=== PATIENT | female | born 1960 | race Caucasian/White ===

== ENCOUNTER 2024-01-12 08:43 | Outpatient (AMB) | payer OTHER, SELFPAY ==
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
[2024-01-12 08:59] VITALS: BP 189/83; PULSE 75; O2SAT 97; BMI 36.1
== END 2024-01-12 10:00 | disposition home or self-care (01) ==
PROVIDERS: PCP Physical Medicine & Rehabilitation; Visit Provider Registered Nurse Emergency
DX: G90.50 Complex regional pain syndrome I, unspecified (principal); M79.602 Pain in left arm
CPT/HCPCS: 99204

== ENCOUNTER 2024-03-01 06:00 | Day surgery (SDC) | payer OTHER, SELFPAY ==
[2024-02-28 13:25] VITALS: BMI 36.1
[2024-03-01] VITALS (7 sets, daily range): BP systolic 143–153; BP diastolic 65–79; PULSE 67–96; RESP 16–18; TEMP 36.1–36.7; O2SAT 95–97; BMI 35.5
[2024-03-01] MEDS: Lactated Ringers 1,000 ML 100 ML IVCONT (06:42)
--- NOTE | 2024-03-01 07:27 | MHC.SHP ---
Pre-Procedural Eval Section A - 24 Hr Update-Section A only Date of Service: 03/01/24 The patient is an INPATIENT: No Changes since office visit: Yes Patient answered all questions The patient has been examined within 24 hours of the surgical procedure. The History & Physical has been completed within 30 days and I have reviewed it.: No Section B - Complete if H&P > 30 days Chief Complaint: Complex regional pain syndrome I, unspecified Details of Present Illness: as above Relevant Family History (Specify if Yes): No Relevant Social History: None Present Medications: see Short Stay Collaborative assessment Medical History: No relevant PMH History of Previous Operations: No relevant previous surgery Allergies: Allergies Allergy/AdvReac Type Severity Reaction Status Date / Time adhesive tape Allergy Intermediate Rash Verified 03/01/24 06:53 Latex, Natural Rubber Allergy Intermediate Rash Verified 03/01/24 06:53 nylon Allergy Mild Itching Verified 03/01/24 06:53 Review of Systems Sugical H&P ROS: Negative: Neurological, Psychiatric, Hem-Onc, Allergic/Immunologic, Genitourinary, Integumentary, Endocrine and Eyes/Ears/Nose/Throat and Yes, Specify: Constitution (Obesity), Cardiovascular (HTN), Respiratory (asthma), Gastrointestinal (GERD) and Musculoskeletal (CRPS I LUE) Exam Surgical H&P Exam: Normal: HEENT, Normal: Heart, Normal: Lungs, Normal: Extremities, Normal: Skin and Normal: Neurological and Significant Findings: Abdomen (enlarged 2 to i/a & s/q fat) Plan Diagnosis/Plan: Unchanged I have reviewed the history and physical and performed a pertinent physical examination on my patient. No changes have occurred unless specified. Time Spent With Patient Time: Total time managing care of this patient today ____ minutes.
--- NOTE | 2024-03-01 07:30 | P.CONAN_ITS ---
Documented by User: Irma Ma NP 02/28/24 14:00 HPI - Anesthesia Eval Consult details Narrative: 63yo F for Spinal Cord Stimulation Trial PMF Active Problems Active Problems: All Active Problems Left arm pain (Acute) CRPS (complex regional pain syndrome type I) (Acute) Past Medical History Medical History Pelvic prolapse Gallstones Arthritis Anxiety Fatigue Hypertension Chronic headaches Thyroid disorder Asthma Fibromyalgia Surgical History Surgical History (Updated 03/01/24 @ 06:52 by Luisana Mulligan, RN) Hx of hysterectomy Hx of pelvic surgery Hx of colonoscopy S/P cholecystectomy Social History Social History Are you a primary senior care manager to a significant other at home: No Do you presently have visiting nurse or other home services: No Patient Tobacco Use Status: Former Tobacco user Have you been hit, kicked, punched, or otherwise hurt by someone within the past year? If so, by whom?: No Are you DNR?: No Advance Directives: No Advance Directives Information Provided: Yes Recently lost weight without trying: No Nutrition Risks: No Nutritional Risk Meds Allergies Allergy/AdvReac Type Severity Reaction Status Date / Time adhesive tape Allergy Intermediate Rash Verified 03/01/24 06:53 Latex, Natural Rubber Allergy Intermediate Rash Verified 03/01/24 06:53 nylon Allergy Mild Itching Verified 03/01/24 06:53 Home Medications ?Medication ?Instructions ?Recorded ?Confirmed ?Last Taken ?Type acetaminophen 650 mg 650 mg PO Q12H 01/12/24 02/28/24 Unknown History tablet,extended release albuterol sulfate 90 mcg/actuation 2 puff inhalation Q6H PRN 01/12/24 02/28/24 Unknown History aerosol inhaler Shortness Of Breath Or Wheezing azelastine 137 mcg (0.1 %) nasal 2 spray intranasal BID 01/12/24 02/28/24 Unknown History spray cyclobenzaprine 10 mg tablet 10 mg PO BEDTIME 01/12/24 02/28/24 Unknown History duloxetine 40 mg capsule,delayed 40 mg PO DAILY 01/12/24 02/28/24 Unknown History release esomeprazole magnesium 20 mg 20 mg PO DAILY 01/12/24 02/28/24 Unknown History capsule,delayed release (Nexium) estradiol 10 mcg vaginal insert 10 mcg vaginal 2XW 01/12/24 02/28/24 Unknown History levocetirizine 5 mg tablet (Xyzal) 5 mg PO QPM PRN Allergy Symptoms 01/12/24 02/28/24 Unknown History levothyroxine 137 mcg capsule 137 mcg PO DAILY 01/12/24 02/28/24 03/01/24 History lisinopril 20 mg tablet 20 mg PO DAILY 01/12/24 02/28/24 Unknown History ropinirole 2 mg tablet 2 mg PO BEDTIME 01/12/24 02/28/24 Unknown History tramadol 50 mg tablet 50 mg PO BID PRN Pain 01/12/24 02/28/24 Unknown History Exam Height,Weight and Vital Signs: Height 5 ft 7 in Weight 104.44 kg Pertinent Lab Results Pertinent Lab Results: CBC and BMP 07/2023 from [facility] Narrative Narrative: EKG 07/2023 [id number] Ventricular Rate: 67 BPM Atrial Rate: 67 BPM P-R Interval: 182 ms QRS Duration: 98 ms Q-T Interval: 412 ms QTC Calculation(Bazett): 435 ms P De Ruyter: 50 degrees R De Ruyter: -12 degrees T De Ruyter: 43 degrees Normal sinus rhythm with sinus arrhythmia Moderate voltage criteria for LVH, may be normal variant ( R in aVL , [place] product ) Borderline ECG When compared with ECG of 24-FEB-2022 10:50, No significant change was found Confirmed by YARITZA CONNER MD ([id number]) on 08/16/2023 9:13:32 AM Assessment and Plan Assessment Anesthesia Assessment: Chart Reviewed Documented by User: Maira Angelo DO 03/01/24 07:47 [facility] Past Medical History Medical History Pelvic prolapse Gallstones Arthritis Anxiety Fatigue Hypertension Chronic headaches Thyroid disorder Asthma Fibromyalgia Family History Family history of problems with anesthesia: No Surgical History Surgical History (Updated 03/01/24 @ 06:52 by Luisana Mulligan RN) Hx of hysterectomy Hx of pelvic surgery Hx of colonoscopy S/P cholecystectomy History of Problems with Anesthesia: Yes (PONV) Social History Social History Are you a primary senior care manager to a significant other at home: No Do you presently have visiting nurse or other home services: No Patient Tobacco Use Status: Former Tobacco user Have you been hit, kicked, punched, or otherwise hurt by someone within the past year? If so, by whom?: No Are you DNR?: No Advance Directives: No Advance Directives Information Provided: Yes Recently lost weight without trying: No Nutrition Risks: No Nutritional Risk Meds Allergies Allergy/AdvReac Type Severity Reaction Status Date / Time adhesive tape Allergy Intermediate Rash Verified 03/01/24 06:53 Latex, Natural Rubber Allergy Intermediate Rash Verified 03/01/24 06:53 nylon Allergy Mild Itching Verified 03/01/24 06:53 Home Medications ?Medication ?Instructions ?Recorded ?Confirmed ?Last Taken ?Type acetaminophen 650 mg 650 mg PO Q12H 01/12/24 02/28/24 Unknown History tablet,extended release albuterol sulfate 90 mcg/actuation 2 puff inhalation Q6H PRN 01/12/24 02/28/24 Unknown History aerosol inhaler Shortness Of Breath Or Wheezing azelastine 137 mcg (0.1 %) nasal 2 spray intranasal BID 01/12/24 02/28/24 Unknown History spray cyclobenzaprine 10 mg tablet 10 mg PO BEDTIME 01/12/24 02/28/24 Unknown History duloxetine 40 mg capsule,delayed 40 mg PO DAILY 01/12/24 02/28/24 Unknown History release esomeprazole magnesium 20 mg 20 mg PO DAILY 01/12/24 02/28/24 Unknown History capsule,delayed release (Nexium) estradiol 10 mcg vaginal insert 10 mcg vaginal 2XW 01/12/24 02/28/24 Unknown History levocetirizine 5 mg tablet (Xyzal) 5 mg PO QPM PRN Allergy Symptoms 01/12/24 02/28/24 Unknown History levothyroxine 137 mcg capsule 137 mcg PO DAILY 01/12/24 02/28/24 03/01/24 History lisinopril 20 mg tablet 20 mg PO DAILY 01/12/24 02/28/24 Unknown History ropinirole 2 mg tablet 2 mg PO BEDTIME 01/12/24 02/28/24 Unknown History tramadol 50 mg tablet 50 mg PO BID PRN Pain 01/12/24 02/28/24 Unknown History Exam Exam Date and Time: 03/01/24 0730 Height,Weight and Vital Signs: Height 5 ft 7 in Weight 104.44 kg Vital Signs Temperature 98.1 F 03/01/24 06:50 Pulse Rate 96 03/01/24 06:50 Respiratory Rate 18 03/01/24 06:50 Blood Pressure 145/79 H 03/01/24 06:50 Pulse Oximetry 95 03/01/24 06:50 Oxygen Delivery Method Room Air 03/01/24 06:50 Temperature 98.1 F 03/01/24 06:50 Pulse Rate 96 03/01/24 06:50 Respiratory Rate 18 03/01/24 06:50 Blood Pressure 145/79 H 03/01/24 06:50 Pulse Oximetry 95 03/01/24 06:50 Oxygen Delivery Method Room Air 03/01/24 06:50 Airway Mallampati Class: II TM Dist: >3cm Neck ROM: Full Loose/Missing/Broken Teeth: Yes (multiple missing teeth; permanent bridge) Heart: S1S2 Lungs: CTAB Assessment and Plan Assessment Anesthesia Assessment: Anesthesia Plan Discussed and Chart Reviewed Final Anesthetic Review Family History of Problems with Anesthesia: No History of Problems with Anesthesia: Yes (PONV) NPO: Yes ASA Class: II Final Preanesthetic Review: No Changes in Pt Med Stat, Meds/Allgs Chart Reviewed, Consent Obtained/Reviewed and Anes Risks/Benef Reviewed Patient Risk: Low Procedure Risk: Low Anesthetic Plan Anesthetic Plan: MAC: and Agree w/ Assess. and Plan Disposition: Standard PACU
--- NOTE | 2024-03-01 07:31 | P.OP_ITS ---
Operative Note Operative Note Date of Service: 03/01/24 Narrative: Trial of [employer] spinal cord stimulator cervical position. Jessica is very pleasant 63 years old lady who came today- to the operating room for trial of spinal cord stimulator [employer] for the treatment of CRPS type one on the left upper extremity. ?Preoperatively patient received ? cefazolin 2 g approximately 20 minutes before the incision. After obtaining informed consent where risks and benefits as well as alternatives were explained to the patient including risk of bleeding, infection, peripheral nerve damage, spinal cord damage and headache, the patient was taken to the operating room. She was positioned prone on operating table, ASA monitor were applied and the patient was minimally sedated. ?Time-out was performed delineating correct site, side, the nature of the procedure, patient's allergy, preoperative antibiotic if needed.? All operating room staff was participating in OR time-out procedure. Patient's entire back was prepped with Chloraprep twice and draped with full body fenestrated laparoscopy drape.? Sterilely draped C-arm was brought over operating field and square picture of the T8,T9, T10 vertebrae? were demonstrated on the screen.?The position of the C-arm during the case was adjusted appropriately to receive images as close to sq as possible. ?Attention FIRST? was concentrated on the T7-T8 epidural interspace. The l ocation of the projection of T10 vertebra right pedicle was found on the skin using C-arm.? This location was injected with mixture of lidocaine 2% and ropivacaine 0.5% - 5 cc. and subcutaneous tissues were also anesthetized with the same solution.? After that 11 blade was used to make a small herve on the skin.? 10 cm 14 gauge? introducer epidural needle was inserted through the herve and advanced to right T8-T9 epidural interspace. The advancement of the needle was performed on anterior posterior and lateral views. Loss of resistance to air technique were used to locate epidural space. Guitar wire was used to confirm position of the needle in the epidural space, and after that epidural stimulating lead was attempted to insert and advance to the posterior epidural space. However epidural adhesions at this area did not allow me to advance the stimulating catheter as desired. I was not able to advance epidural catheter anywhere shorter than 2.5 cm from the tip needle. The decision was made to change the positioned of the electrode insertion for T11-T12 interspace. ? .? Location of the projection of the right pedicle pedicle center of the L1 vertebra was found on the skin using C-arm.? This location was injected with mixture of lidocaine 2% and Marcaine 0.5% 5 cc.? After that 11 blade was used to make a herve on the skin.? 10 cm 14 gauge introducer epidural needle was inserted through the herve and advanced to T11-T12 epidural interspace.? The advancement of the needle was performed on anterior posterior and lateral views.? Guitar wire and loss of resistance to air technique were used to locate epidural space.? When guitar wire was spread in the epidural fashion, epidural lead was inserted through the needle. After the the epidural lead advanced into the posterior epidural space and advanced to the T7-T8 epidural interspace were resistance again was met. Blue sheath introducer was obtained the needle was withdrawn and blue sheath introducer was inserted over the body of the epidural lead in the epidural space. Advancement of the epidural lead went little bit easier at this point and I was able to reach posterior epidural space at C6 C7 interval. Attempts to advance electrodes higher were not successful patient complained on severe pressure in her neck and thoracic spine were epidural lead was flexing laterally into the gutter and touching the peripheral nerves. The decision was made to perform the trial at this position. With appropriately positioned epidural lead in posterior epidural space slightly left to the midline patient reported stimulation from the mid arm to her fingers on the left. Due to difficulties of the case we decided to do 1 epidural lead trial. the position of electrodes in the posterior epidural space was verified by Fluoroscopy image. After that the skin at the site of the mixture of lidocaine 2% and ropivacaine 0.5% one-to-one was injected, the blue sheath introducer was withdrawn, the stylette wire was removed from the epidural lead..? The anchoring devices were dislodged on the leads and advanced to the level of the skin.? The anchoring devices were sutured with two 0-0 ?Silk sutures per each anchor to the skin of the patient. The central fixation screw of each anchor was rotated until three clicks were heard. The midthoracic skin herve was also sutured with 1 silk suture. The leads were connected to testing device.? Bacitracin ointment was applied to the entrance point of bilateral wires.? Sterile dressing was applied to the patient's back.? The testing device was also taped to the patient's back.? the patient tolerated procedure well she was taken outside of the operating room to recovery room.
--- NOTE | 2024-03-01 09:42 | PM.OP ---
Brief Operative Note Date of Service: 03/01/24 Pre-op diagnosis: Complex regional pain syndrome left upper extremity type 1 Post-op diagnosis: same Procedure: Trial of [employer] spinal cord stimulation system Implants: None permanent Surgeon: Oniel Briceno MD Anesthesia: MAC Was an Operations Administrative Assistant used for this Procedure?: No Estimated blood loss (mL): 2 Condition: stable Disposition: PACU
== END 2024-03-01 11:55 | disposition home or self-care (01) ==
PROVIDERS: PCP Family Medicine; Visit Provider Anesthesiology
PROC: (CPT 63650; principal; 2024-03-01 07:30)
DX: G90.512 Complex regional pain syndrome I of left upper limb (principal); M79.602 Pain in left arm; G96.12 Meningeal adhesions (cerebral) (spinal); M79.7 Fibromyalgia; M19.90 Unspecified osteoarthritis, unspecified site; I10 Essential (primary) hypertension; J45.909 Unspecified asthma, uncomplicated; E07.9 Disorder of thyroid, unspecified; R51.9 Headache, unspecified; Z87.828 Personal history of other (healed) physical injury and trauma; Z79.899 Other long term (current) drug therapy; Z91.040 Latex allergy status; L23.1 Allergic contact dermatitis due to adhesives; Z90.49 Acquired absence of other specified parts of digestive tract
CPT/HCPCS: 63650 ×2; C1889; C1897; J0690; J2003; J2250; J2405; J2704; J2795; J3010

== ENCOUNTER → 2024-03-01 06:00 | Outpatient (BNV) | payer OTHER, SELFPAY | PROVIDERS: PCP Family Medicine; Visit Provider Anesthesiology | DX: G90.512 Complex regional pain syndrome I of left upper limb (principal) | CPT/HCPCS: 63650 ==

== ENCOUNTER → 2024-03-05 10:22 | Outpatient (BNVA) | payer OTHER, SELFPAY | PROVIDERS: PCP Family Medicine | DX: Z48.00 Encounter for change or removal of nonsurgical wound dressing (principal) ==

== ENCOUNTER 2024-03-06 08:36 | Outpatient (AMB) | payer OTHER, SELFPAY ==
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
[2024-03-06 08:38] VITALS: BP 169/81; PULSE 86; RESP 16; BMI 36.0
== END 2024-03-06 09:17 | disposition home or self-care (01) ==
PROVIDERS: PCP Family Medicine; Visit Provider Anesthesiology
DX: G90.50 Complex regional pain syndrome I, unspecified (principal); M79.602 Pain in left arm
CPT/HCPCS: 99214

== ENCOUNTER → 2024-03-06 08:36 | Outpatient (BNVA) | payer OTHER, SELFPAY | PROVIDERS: PCP Family Medicine; Visit Provider Anesthesiology ==

== ENCOUNTER 2024-03-11 10:12 | Outpatient (AMB) | payer OTHER, SELFPAY ==
--- NOTE | 2024-03-11 10:33 | HO.SPINEOV ---
Vital Signs 03/11/24 10:36 Height 5 ft 7 in Weight 225 lb BMI 35.2 Intake Visit Reasons: urgent referral from Intake Note: Ms. Yung is here today c/o Severe Low back pain. Stitching Machine Operator Required: No Allergies adhesive tape Allergy (Intermediate, Verified 03/06/24 08:41) Rash Latex, Natural Rubber Allergy (Intermediate, Verified 03/06/24 08:41) Rash nylon Allergy (Mild, Verified 03/06/24 08:41) Itching Physical Exam Vital Signs: BMI result Body Mass Index 35.2 Assessment & Plan Assessment & Plan (1) CRPS (complex regional pain syndrome type I): Code(s): G90.50 - Complex regional pain syndrome I, unspecified Category: Medical Plan Dear Dr. Briceno, Thank you for referring Jessica to us today. Jessica is a pleasant 63 year old female who comes in today as a referral from pain management to evaluate her for cervical laminotomy to assist with spinal cord stimulator placement. To recap the patient previously underwent spinal cord stimulator trial with our colleagues in pain management on 03/01/2024. Unfortunately they were not able to advance the trial lead much past the C6 area. The patient reports that she has complex regional pain syndrome in her left upper extremity, and is attempting to have the spinal cord stimulator placed in an effort to mitigate this pain. She reportedly has had a favorable response to the trial, and Dr. Osman hopes that by advancing the lead farther cranially she will be able to obtain resolution of her pain. Notably she has had a slightly complicated postoperative course and had some difficulties with postoperative healing since her trial placement, warranting a course of postoperative antibiotics. PMH: Hypothyroidism, hypertension, GERD, restless legs syndrome, fibromyalgia, 4 different pelvic floor surgeries from [id number]. Asthma, seasonal allergies, depression. Social hx: Patient does not smoke, reports no substance use. Medications: Tramadol, ropinirole, Lyrica, lisinopril, levothyroxine, levocetirizine, Diflucan, estradiol, esomeprazole, duloxetine, cyclobenzaprine, Keflex, azelastine, albuterol, acetaminophen. Allergies: NKDA. Physical exam: The patient has 5/5 strength in her upper and lower extremities. She has hyperesthesia to her left upper extremity. The rest of her sensation is intact and normal. She ambulates well without an antalgic gait. Her reflexes are hypoactive bilaterally in the patella. The rest of her reflexes are 2+ intact. (-) Harris's, (-) clonus, (-) Lhermitte's, (-) bilateral straight leg raise. Posterior incision site appears clean, dry and healing with no signs of obvious edema, fluctuance or drainage. Imaging review: The patient reports that she did not bring her MRI of the cervical spine with her to this visit, however she has a disc and states that she can drop it off. Impression: Milton valdez is a pleasant 63-year-old female who comes in today for surgical evaluation for C5 laminotomy / decompression in order to assist with placement of spinal cord stimulator by our colleagues in pain management. 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 She is still currently taking Kephlex. For these reasons, and for a specific surgical plan I believe a subsequent follow up with Dr. Hays is best. That will also allow both surgeons to coordinate a date that works for them both to perform this surgery together. Thank you for allowing us to care for your patient. The total time spent with this visit with this patient was 30 minutes reviewing history, physical exam, MRI imaging review, and implementation of treatment plan or further diagnostic testing Keven Hays MD,PhD [facility] Coding Level of Care Code New Pt Level 3 (84935) Diagnoses CRPS (complex regional pain syndrome type I) G90.50
[2024-03-11 10:36] VITALS: BMI 35.2
== END 2024-03-11 10:54 | disposition home or self-care (01) ==
PROVIDERS: PCP Family Medicine; Referring Provider Anesthesiology; Visit Provider Physician Assistant
DX: G90.50 Complex regional pain syndrome I, unspecified (principal)
CPT/HCPCS: 99203

== ENCOUNTER → 2024-03-11 10:12 | Outpatient (BNVA) | payer OTHER, SELFPAY | PROVIDERS: PCP Family Medicine; Referring Provider Anesthesiology; Visit Provider Physician Assistant ==

== ENCOUNTER 2024-03-18 09:08 | Outpatient (AMB) | payer OTHER, SELFPAY ==
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
[2024-03-18 09:12] VITALS: BP 166/77; PULSE 82; RESP 16; O2SAT 95; BMI 35.7
--- OUTSIDE RECORDS SUMMARY | 2024-03-18 13:27 | XMS_ITS | Encounter Summary ---
Author Organization [employer] Address [address] [place] [address] Care Team Providers Care Tool Chaser Name Role Phone Burt Hines Unassigned Primary Care Provider U navailable Encounter Details Date Type Department Care Team (Latest Contact Info) Description 03/23/2018 [facility] CONVERSIONS Dental, Provider, DDS Social History Tobacco Use Types Packs/Day Years Used Date Smoking Tobacco: Never Assessed Comments Unknown Sex and Gender Information Value Date Recorded Sex Assigned at Female 06/09/2022 11:56 AM EDT Legal Sex Female 5:35 PM EDT Gender Identity Female 06/09/2022 11:56 AM EDT Sexual Orientation Choose not to disclose 2022 11:56 AM EDT documented as of this encounter Plan of Treatment Not on file documented as of this encounter Visit Diagnoses Not on filedocumented in this encounter Care Teams Tool Chaser Relationship Specialty Start Date End Date Burt Hinesssamadeo PCP - General Family Medicine 06/20/22 documented as of this encounter
--- OUTSIDE RECORDS SUMMARY | 2024-03-18 13:27 | XMS_ITS | Encounter Summary ---
Author Organization [employer] Address [address] [facility] [address] [place] [address] Care Team Providers Care Imager Name Role Phone Burt Hines Unassigned Primary Care Provider U navailable Encounter Details Date Type Department Care Team (Latest Contact Info) Description 12/04/2020 [facility] CONVERSIONS Dental, Provider, DDS Social [...] on filedocumented in this encounter Care Teams Imager Relationship Specialty Start Date End Date Burt Hines Unassigned PCP - General Family Medicine 06/20/22 documented as of this encounter
--- OUTSIDE RECORDS SUMMARY | 2024-03-18 13:27 | XMS_ITS | Encounter Summary ---
Author Organization [employer] [facility] Address [address] [place] [address] Care Team Providers Care Ship Pilot Dispatcher Name Role Phone Burt Hines Unassigned Primary Care Provider U navailable Encounter Details Date Type Department Care Team (Latest Contact Info) Description 12/15/2021 [facility] CONVERSIONS Dental, Provider, DDS Social [...] on filedocumented in this encounter Care Teams Ship Pilot Dispatcher Relationship Specialty Start Date End Date Burt Hines Unassigned PCP - General Family Medicine 06/20/22 documented as of this encounter
--- OUTSIDE RECORDS SUMMARY | 2024-03-18 13:27 | XMS_ITS | Clinical Summary ---
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 Primary Care Provider Unavailabl e Social History Tobacco Use Types Packs/Day Years Used Date Smoking Tobacco: Never Assessed Comments Unknown Sex and Gender Information Value Date Recorded Sex Assigned at Not on file Legal Sex Female 8:48 PM EST Gender Identity Not on file Sexual Orientation Not on file Plan of Treatment Health Maintenance Due Date Last Done Comments Colorectal Cancer: COLONOSCO PY Screening every 10 yrs (or Modifier) 1961 Depression: Screening Annual ly using PHQ-2/9 in Adults 18 yrs or above (or HM Modifier)([facility]) 1979 Hepatitis C Virus Infection in Adolescents and Adults: Screening (or Modifier) ([facility]) 1979 SDOH Screening Reminder: Annually for all adults ([facility]) 1979 Tobacco Smoking Cessation: i n Adults excluding Women: Behavioral and Pharmacotherapy Interventions ([facility]) 1979 Cervical Cancer Screenin-65 yrs of age (or Modifier) 1982 Cervical Cancer Screening: P ap every 3 yrs pts age 21-65 1982 Cervical Cancer: Pap Screeni ng with Modifier timing ([facility]) 1982 Cervical Cancer: hrHPV alone or with cotesting Pap for Pts 30-65yrs screening every 5yrs ([facility]) 1982 Colorectal Cancer Screening 45 -75 Yrs (or HM Modifier) 2006 Colorectal Cancer: FLEXIBLE SIGMOIDOSCOPY Screening every 5 yrs 2006 Colorectal Cancer: Fecal Immunochemical Test (FIT) Annually [facility] 2006 Colorectal Cancer: High-sensitivity gFOBT Screening Annually [facility] 2006 Colorectal Cancer: Stool Cologuard Screening every 3 yrs 2006 Colorectal Cancer:CT Colonography Screening every 5 yrs 2006 Lipid Screening: Every 5 yrs for Women aged 45+ (or HM Modifier) ([facility]) 2007 Breast Cancer: Screening Annually age 50-74 yrs (or HM Modifier)([facility]) 2011 Zoster/Shingles Vaccine Seri es Screening: Adults aged 18+ yrs (or HM Modifiers)([facility]) (2 of 2) 07/27/2017 06/01/2017 DTaP/Tdap/Td Vaccines ([facility]) (2 - Td or Tdap) 06/03/2019 06/02/2009 Flu Vaccination: Yearly for ages 18mos through 64 years (or Modifier)([facility]) 09/21/2023 11/03/2017 COVID-19 Vaccine Screening: Initial Series and Booster Status ([facility]) ( - 2023- season) 2023 07/03/2020, 06/12/2020 RSV Vaccines (1 - 1-dose 75+ series) 2036 Pneumococcal Vaccination Screening: Pts 0-19 & 19-64 yrs of age ([facility]) Aged Out No longer eligible based on patient's age to complete this topic Medical Devices Not on file Care Teams Legal Service Specialist Relationship Specialty Start Date End Date No, Pcp, 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
--- OUTSIDE RECORDS SUMMARY | 2024-03-18 13:27 | XMS_ITS | Clinical Summary ---
Author Organization [employer] Address [address] [facility] [address] [place] [address] Care Team Providers Care Ethnology Professor Name Role Phone PcpBurt Unassigned Primary Care Provider U navailable Allergies Active Allergy Reactions Criticality Noted Date Comments Lactose 07/04/2017 Latex 07/04/2017 Wound Dressing Adhesive 04/13/2020 Medications traMADol (Ultram) 50 MG tablet TAKE 1 TABLET EVERY DAY AT BEDTIME (DO NOT DRIVE WHILE TAKING THIS MEDICATION) 05/19/2022 Active rOPINIRole (Requip) 1 MG tablet TAKE 1-3 TABLETS BY MOUTH 1-3 HOURS BEFORE BEDTIME FOR 30 DAYS 05/06/2022 Active LORazepam (Ativan) 0.5 MG tablet TAKE 1 TABLET BY MOUTH EVERY EVENING FOR ANXIETY AND SLEEP 11/05/2021 Active lisinopril 20 MG tablet Take 20 mg by mouth in the morning. 04/05/2022 Active levothyroxine (Synthroid, Levoxyl) 112 MCG tablet Take 112 mcg by mouth in the morning. 04/03/2022 Active Flovent HFA 110 MCG/ACT inhaler Inhale 2 puffs 2 times daily. 02/08/2022 Active Xhance 93 MCG/ACT Exhaler Suspension INHALE 1 PUFF INTO BOTH NOSTRILS TWICE A DAY 08/04/2021 Active ferrous sulfate 324 (65 Fe) MG EC tablet Take 324 mg by mouth in the morning. 03/14/2022 Active estradiol (Vivelle-DOT) 0.0375 MG/24HR 06/15/2022 Acti ve esomeprazole (NexIUM) [address] capsule Take 20 mg by mouth in the morning. Active DULoxetine (Cymbalta) [address] capsule Take 40 mg by mouth in the morning. 05/04/2022 Active Aspirin Low Dose 81 MG EC tablet Take 81 mg by mouth every 12 (twelve) hours. 03/24/2022 Active albuterol 108 (90 Base) MCG/ACT inhaler Inhale 2 puffs every 4 (four) hours if needed. 06/26/2018 Active Immunizations Name Administration Dates Next Due INFLUENZA VACCINE QUADRIVALE NT RECOMBINANT PRESERVATIVE FREE RIV4 11/03/2017 Influenza injectable quadriv alent preservative free 11/12/2019,11/29/2018,10/20/2015 Influenza, IIV3, injectable 12/22/2021,0 02/24/2021,12/15/2014,2013 Influenza, seasonal, injecta ble, preservative free 11/03/2016 PPD Test 07/31/2018 Pneumococcal Conjugate PCV 13 01/10/2014 TD (adult), 2 Lf tetanus tox oid, preservative free, adsorbed 06/03/2015 Tdap 06/02/2009 Zoster, Recombinant 07/31/2021,06/01/2017 Social History Tobacco Use Types Packs/Day Years Used Date Smoking Tobacco: Never Assessed Comments Unknown Sex and Gender Information Value Date Recorded Sex Assigned at Female 06/09/2022 11:56 AM EDT Legal Sex Female 5:35 PM EDT Gender Identity Female 06/09/2022 11:56 AM EDT Sexual Orientation Choose not to disclose 2022 11:56 AM EDT Plan of Treatment Health Maintenance Due Date Last Done Comments CT Colonography 1961 Colonoscopy 1961 Colorectal Cancer Screening 1961 Depression Screening 1961 FIT DNA/Cologuard 1961 FIT 1961 FOBT 1961 HIV Screening 1961 Lipid Panel 1961 SDOH Screening 1961 Sigmoidoscopy 1961 Alcohol/Substance Use Screening 1973 Tobacco Screening 1973 Hepatitis C Screening 1979 Pap Smear 1982 Cervical Cancer Screening 1991 HPV/Cotest 1991 Pneumococcal Vaccine: Pediatrics (0 to 5 Years) and At-Risk Patients (6 to 64 Years) (2 of 2 - PPSV23 or PCV20) 03/07/2014 01/10/2014 RSV Patients and Patients Aged 60 years or older (1 - Risk 60-74 years 1-dose series) 2021 Dental X-Ray: Full Mouth 03/24/2021 03/23/2018 Dental X-Ray: Bitewings 12/05/2021 12/05/19 21, 03/23/2018, 02/17/2017 Dental Oral Exam 12/18/2022 06/17/2022, , 06/11/2021, Additional history exists Dental Prophylaxis 12/18/2022 06/17/2022, 1 , 06/11/2021, Additional history exists COVID-19 Vaccine ( season) 2023 12/22/2021, 02/24/2021, 07/03/2020, Additional history exists Influenza Vaccine (#1) 2023 , 12/22/2021, 02/24/2021, Additional history exists DTaP/Tdap/Td Vaccines (3 - Td or Tdap) 06/02/2025 06/03/2015, 06/02/2009 Mammogram 09/18/2025 09/19/2023, 08/0 05/2020, 09/12/2018 Zoster Vaccines Completed 07/31/2021, 06/01/2017 HIB Vaccines Aged Out No longer eligi ble based on patient's age to complete this topic HPV Vaccines Aged Out No longer eligi ble based on patient's age to complete this topic Hepatitis A Vaccines Aged Out No long er eligible based on patient's age to complete this topic Hepatitis B Vaccines Aged Out No long er eligible based on patient's age to complete this topic IPV Vaccines Aged Out No longer eligi ble based on patient's age to complete this topic Meningococcal Vaccine Aged Out No misael alex eligible based on patient's age to complete this topic RSV under 20 months Aged Out No longe r eligible based on patient's age to complete this topic Rotavirus Vaccines Aged Out No longer eligible based on patient's age to complete this topic Procedures Procedure Name Priority Date/Time Associated Diagnosis Comments PROPHYLAXIS - ADULT Routine 06/17/2022 4 :00 PM EDT Encounter for dental examination PERIODIC ORAL EVALUATION - ESTABLISHED PATIENT Routine 06/17/2022 4:00 PM EDT Encounter for dental examination BITEWINGS - 4 RADIOGRAPHIC IMAGES Routine 12/04/2020 12:00 AM EDT DIAGNOSTIC - DIAGNOSTIC IMAGING - INTRAORAL - COMPREHENSIVE SERIES OF RADIOGRAPHIC IMAGES Routine 03/23/2018 12:00 AM EST from Last 3 Months or Most Recently Relevant to Health Maintenance Insurance [facility] MED[facility] STAND ADULT Care Teams Ethnology Professor Relationship Specialty Start Date End Date PcpBurt Unassigned PCP - General Family Medicine 06/20/22
== END 2024-03-18 09:38 | disposition home or self-care (01) ==
PROVIDERS: PCP Family Medicine; Visit Provider Anesthesiology
DX: G90.50 Complex regional pain syndrome I, unspecified (principal); M79.602 Pain in left arm
CPT/HCPCS: 99214

== ENCOUNTER → 2024-03-18 09:08 | Outpatient (BNVA) | payer OTHER, SELFPAY | PROVIDERS: PCP Family Medicine; Visit Provider Anesthesiology ==

== ENCOUNTER 2024-03-22 14:06 | Outpatient (AMB) | payer OTHER, SELFPAY ==
--- OUTSIDE RECORDS SUMMARY | 2024-03-22 14:08 | XMS_ITS | Clinical Summary ---
Author Organization [email or web address] Address [address] [place] [address] Care Team Providers Care Floor Sander Name Role Phone PcpBurt Unassigned Primary Care [...] Cancer Screening 1991 HPV/Cotest 1991 Pneumococcal Vaccine: 50+ Years (2 of 2 - PPSV23) 03/07/2014 01/10/2014 Pneumococcal Vaccine: Pediatrics (0 to 5 Years) and At-Risk Patients (6 to 49) Years) (2 of 2 - PPSV23 or [...] Most Recently Relevant to Health Maintenance Insurance [facility] MEDICAID STAND ADULT Care Teams Floor Sander Relationship Specialty Start Date End Date Burt Hines Unassigned PCP - General Family Medicine 06/20/22
--- OUTSIDE RECORDS SUMMARY | 2024-03-22 14:08 | XMS_ITS | Encounter Summary ---
Author Organization [employer] Address [address] [facility] [address] [place] [address] Care Team Providers Care Tailer In Name Role Phone Burt Hines Unassigned Primary [...] on filedocumented in this encounter Care Teams Tailer In Relationship Specialty Start Date End Date Burt Hines Unassigned PCP - General Family Medicine 06/20/22 documented as of this encounter
--- OUTSIDE RECORDS SUMMARY | 2024-03-22 14:08 | XMS_ITS | Encounter Summary ---
Author Organization [employer] Address [address] [facility] [address] [place] [address] Care Team Providers Care Staffing Clerk Name Role Phone Burt Hines Unassigned Primary [...] on filedocumented in this encounter Care Teams Staffing Clerk Relationship Specialty Start Date End Date Burt Hinesssamadeo PCP - General Family Medicine 06/20/22 documented as of this encounter
--- OUTSIDE RECORDS SUMMARY | 2024-03-22 14:08 | XMS_ITS | Encounter Summary ---
Author Organization [employer] [facility] Address [address] [facility] [address] [place] [address] Care Team Providers Care Coordinator Mining Products Name Role Phone Burt Hines Unassigned Primary [...] on filedocumented in this encounter Care Teams Coordinator Mining Products Relationship Specialty Start Date End Date Burt Hines Unassigned PCP - General Family Medicine 06/20/22 documented as of this encounter
--- NOTE | 2024-03-22 15:13 | HO.SPINEOV ---
Intake Visit Reasons: discuss surgery Intake Note: Ms. Yung is here today to discuss surgery Transfer Agent Required: No Allergies adhesive tape Allergy (Intermediate, Verified 03/18/24 09:13) Rash Latex, Natural Rubber Allergy (Intermediate, Verified 03/18/24 09:13) Rash nylon Allergy (Mild, Verified 03/18/24 09:13) Itching Assessment & Plan Assessment & Plan (1) CRPS (complex regional pain syndrome type I): Code(s): G90.50 - Complex regional pain syndrome I, unspecified Category: Medical Plan Dear colleague, On 03/22/2024 I saw for preoperative visit Jessica Yung, , pleasant 64-year-old female that is suffering from chronic pain syndrome. She had a trial cervical spinal cord stimulator that gave her near complete relief of her symptoms. Unfortunately, the pain specialist was unable to put in a permanent stimulator. The request this that I will do that under direct vision. I reviewed the MRI of the cervical spine and I do not see any reasons why this can not be done. The plan is to do a left C5 laminotomy to insert the epidural lead that will be connected to a battery. The plan is to do this on 04/17/2024. I spent 20 minutes in his consult to review imaging and to discuss plan of care. The patient will call [facility] and let him know the date of surgery. Thank you for allowing me take care of your patient. Ahmet Hays MD, PhD Spine Fellowship Trained Neurosurgeon Director, [facility] Coding Level of Care Code Est Pt Level 3 (95907) Diagnoses CRPS (complex regional pain syndrome type I) G90.50
== END 2024-03-22 15:42 | disposition home or self-care (01) ==
PROVIDERS: PCP Family Medicine; Visit Provider Neurological Surgery
DX: G90.50 Complex regional pain syndrome I, unspecified (principal)
CPT/HCPCS: 99213

== ENCOUNTER → 2024-03-22 14:06 | Outpatient (BNVA) | payer OTHER, SELFPAY | PROVIDERS: PCP Family Medicine; Visit Provider Neurological Surgery ==

== ENCOUNTER 2024-04-17 08:16 | Day surgery (SDC) | payer OTHER, SELFPAY ==
[2024-04-10 13:26] VITALS: BP 149/75; PULSE 66; RESP 17; O2SAT 97; BMI 36.0
[2024-04-10 14:50] LABS: Anion Gap 10 (12-20); Blood Urea Nitrogen 10 mg/dL (9-16); Calcium 9.3 mg/dL (8.4-10.2); Carbon Dioxide 25 mmol/L (22-29); Chloride 109 mmol/L (96-108); Creatinine Clr Calc Pharmacy 89.3; Estimated Glomerular Filt Rate > 60; Glucose Random 100 mg/dL (60-115); Potassium 3.8 mmol/L (3.3-5.1); Sodium 140 mmol/L (135-145)
--- NOTE | 2024-04-16 11:46 | HO.ANESPROP2 ---
Documented by User: Irma Ma NP 04/16/24 11:47 HPI - Anesthesia Eval Consult details Narrative: 64yo F for Left C5 Cervical Laminectomy for Spinal Cord Stimulator Insertion s/p trial 02/2024 with MAC PAT 04/10/[address] Sonido PAREDES - scop patch ordered PMFSH Active Problems Active Problems: All Active Problems Left arm pain (Acute) CRPS (complex regional pain syndrome type I) (Acute) Past Medical History Medical History Spinal cord stimulator status Back pain Cough Bronchitis Hx of SOB (shortness of breath) Restless leg syndrome Raynauds disease PTSD (post-traumatic stress disorder) Osteopenia Osteoarthritis Left rotator cuff tear arthropathy Left lateral epicondylitis Insomnia Postmenopausal HRT (hormone replacement therapy) GERD (gastroesophageal reflux disease) Dyspnea on exertion Depression Bilateral edema of lower extremity MO positive Pelvic prolapse Gallstones Arthritis Anxiety Fatigue Hypertension Chronic headaches Thyroid disorder Asthma Fibromyalgia Family History Family history of problems with anesthesia: No Surgical History Surgical History History of hip surgery Hx of dilation and curettage History of surgery on wrist History of ankle surgery H/O sinus surgery Hx of hysterectomy Hx of pelvic surgery Hx of colonoscopy S/P cholecystectomy History of Problems with Anesthesia: Yes Social History Social History Are you a primary student career development specialist to a significant other at home: No Do you presently have visiting nurse or other home services: No Patient Tobacco Use Status: Former Tobacco user Use of substances other than those prescribed or required for medical reasons: No Have you been hit, kicked, punched, or otherwise hurt by someone within the past year? If so, by whom?: No Are you DNR?: No Advance Directives: No Advance Directives Information Provided: Yes Advance Directives on File: No Recently lost weight without trying: No Eating poorly because of decreased appetite: No Nutrition Risks: No Nutritional Risk Patient : No : No Poor oral hygiene: Yes (missing teeth, front upper bridge, crowns x 2) Meds Allergies Allergy/AdvReac Type Severity Reaction Status Date / Time adhesive tape Allergy Intermediate Rash Verified 03/18/24 09:13 Latex, Natural Rubber Allergy Intermediate Rash Verified 03/18/24 09:13 nylon Allergy Mild Itching Verified 03/18/24 09:13 lactose Allergy Diarrhea Verified 04/17/24 09:05 nitrofurantoin Allergy Rash Verified 04/17/24 09:06 [From Macrobid] sulfamethoxazole Allergy Vomiting Verified 04/17/24 09:05 [From Bactrim] trimethoprim [From Bactrim] Allergy Vomiting Verified 04/17/24 09:05 Home Medications ?Medication ?Instructions ?Recorded ?Confirmed ?Last Taken ?Type acetaminophen 650 mg 1,300 mg PO Q12H 01/12/24 04/10/24 04/16/24 History tablet,extended release albuterol sulfate 90 mcg/actuation 2 puff inhalation Q6H PRN 01/12/24 04/10/24 04/17/24 History aerosol inhaler Shortness Of Breath Or Wheezing duloxetine 40 mg capsule,delayed 40 mg PO BEDTIME 01/12/24 04/10/24 04/16/24 History release esomeprazole magnesium 20 mg 20 mg PO QPM 01/12/24 04/10/24 04/16/24 History capsule,delayed release (Nexium) levothyroxine 137 mcg capsule 137 mcg PO DAILY 01/12/24 04/10/24 04/17/24 History lisinopril 20 mg tablet 20 mg PO DAILY 01/12/24 04/17/24 04/16/24 History ropinirole 2 mg tablet 2 mg PO BEDTIME 01/12/24 04/10/24 Unknown History tramadol 50 mg tablet 50 mg PO BID PRN Pain 01/12/24 04/17/24 Unknown History cetirizine 10 mg tablet (Zyrtec) 10 mg PO DAILY 04/10/24 04/10/24 04/16/24 History estradiol 0.0375 mg/24 hr 1 patch topical 2XW 04/10/24 04/10/24 04/15/24 History semiweekly transdermal patch Voltaren 04/17/24 04/10/24 History Exam Height,Weight and Vital Signs: Height 5 ft 7 in Weight 104.326 kg Last Vital Signs Pulse 66 04/10/24 13:26 Resp 17 04/10/24 13:26 BP 149/75 H 04/10/24 13:26 Pulse Ox 97 04/10/24 13:26 O2 Del Method Room Air 04/10/24 13:26 Pertinent Lab Results Pertinent Lab Results: Laboratory Tests 04/10/24 14:02 Sodium 140 Potassium 3.8 Chloride 109 H Carbon Dioxide 25 Anion Gap 10 L BUN 10 Creatinine 0.80 Estim Creat Clear Calc 89.3 Estimated GFR > 60 Random Glucose 100 Calcium 9.3 Assessment and Plan Assessment Anesthesia Assessment: Chart Reviewed Final Anesthetic Review Family History of Problems with Anesthesia: No History of Problems with Anesthesia: Yes Documented by User: Emilie Joyce MD 04/17/24 12:15 PMFSH Active Problems Active Problems: All Active Problems Left arm pain (Acute) CRPS (complex regional pain syndrome type I) (Acute) ? GRAZYNA. Awaiting sleep study Past Medical History Medical History Spinal cord stimulator status Back pain Cough Bronchitis Hx of SOB (shortness of breath) Restless leg syndrome Raynauds disease PTSD (post-traumatic stress disorder) Osteopenia Osteoarthritis Left rotator cuff tear arthropathy Left lateral epicondylitis Insomnia Postmenopausal HRT (hormone replacement therapy) GERD (gastroesophageal reflux disease) Dyspnea on exertion Depression Bilateral edema of lower extremity MO positive Pelvic prolapse Gallstones Arthritis Anxiety Fatigue Hypertension Chronic headaches Thyroid disorder Asthma Fibromyalgia Family History Family history of problems with anesthesia: No Surgical History Surgical History History of hip surgery Hx of dilation and curettage History of surgery on wrist History of ankle surgery H/O sinus surgery Hx of hysterectomy Hx of pelvic surgery Hx of colonoscopy S/P cholecystectomy History of Problems with Anesthesia: Yes (PONV) Social History Social History Are you a primary student career development specialist to a significant other at home: No Do you presently have visiting nurse or other home services: No Patient Tobacco Use Status: Former Tobacco user Use of substances other than those prescribed or required for medical reasons: No Have you been hit, kicked, punched, or otherwise hurt by someone within the past year? If so, by whom?: No Are you DNR?: No Advance Directives: No Advance Directives Information Provided: Yes Advance Directives on File: No Recently lost weight without trying: No Eating poorly because of decreased appetite: No Nutrition Risks: No Nutritional Risk Patient : No : No Poor oral hygiene: Yes (missing teeth, front upper bridge, crowns x 2) Meds Allergies Allergy/AdvReac Type Severity Reaction Status Date / Time adhesive tape Allergy Intermediate Rash Verified 03/18/24 09:13 Latex, Natural Rubber Allergy Intermediate Rash Verified 03/18/24 09:13 nylon Allergy Mild Itching Verified 03/18/24 09:13 lactose Allergy Diarrhea Verified 04/17/24 09:05 nitrofurantoin Allergy Rash Verified 04/17/24 09:06 [From Macrobid] sulfamethoxazole Allergy Vomiting Verified 04/17/24 09:05 [From Bactrim] trimethoprim [From Bactrim] Allergy Vomiting Verified 04/17/24 09:05 Home Medications ?Medication ?Instructions ?Recorded ?Confirmed ?Last Taken ?Type acetaminophen 650 mg 1,300 mg PO Q12H 01/12/24 04/10/24 04/16/24 History tablet,extended release albuterol sulfate 90 mcg/actuation 2 puff inhalation Q6H PRN 01/12/24 04/10/24 04/17/24 History aerosol inhaler Shortness Of Breath Or Wheezing duloxetine 40 mg capsule,delayed 40 mg PO BEDTIME 01/12/24 04/10/24 04/16/24 History release esomeprazole magnesium 20 mg 20 mg PO QPM 01/12/24 04/10/24 04/16/24 History capsule,delayed release (Nexium) levothyroxine 137 mcg capsule 137 mcg PO DAILY 01/12/24 04/10/24 04/17/24 History lisinopril 20 mg tablet 20 mg PO DAILY 01/12/24 04/17/24 04/16/24 History ropinirole 2 mg tablet 2 mg PO BEDTIME 01/12/24 04/10/24 Unknown History tramadol 50 mg tablet 50 mg PO BID PRN Pain 01/12/24 04/17/24 Unknown History cetirizine 10 mg tablet (Zyrtec) 10 mg PO DAILY 04/10/24 04/10/24 04/16/24 History estradiol 0.0375 mg/24 hr 1 patch topical 2XW 04/10/24 04/10/24 04/15/24 History semiweekly transdermal patch Voltaren 04/17/24 04/10/24 History Exam Height,Weight and Vital Signs: Height 5 ft 7 in Weight 104.326 kg Last Vital Signs Pulse 66 04/10/24 13:26 Resp 17 04/10/24 13:26 BP 149/75 H 04/10/24 13:26 Pulse Ox 97 04/10/24 13:26 O2 Del Method Room Air 04/10/24 13:26 Vital Signs Temp Pulse Resp BP Pulse Ox O2 Del Method 04/17/24 09:30 97.4 F 85 16 161/87 H 99 Room Air Pertinent Lab Results Pertinent Lab Results: Laboratory Tests 04/10/24 14:02 Sodium 140 Potassium 3.8 Chloride 109 H Carbon Dioxide 25 Anion Gap 10 L BUN 10 Creatinine 0.80 Estim Creat Clear Calc 89.3 Estimated GFR > 60 Random Glucose 100 Calcium 9.3 Airway Mallampati Class: II (Small mouth) TM Dist: >3cm Neck ROM: Full Partial: Upper Loose/Missing/Broken Teeth: Yes (Missing several teeth. Denies broken or loose teeth) Heart: RRR Lungs: CTAB Assessment and Plan Assessment Anesthesia Assessment: Anesthesia Plan Discussed and Chart Reviewed Final Anesthetic Review Family History of Problems with Anesthesia: No History of Problems with Anesthesia: Yes (PONV) NPO: Yes ASA Class: III Final Preanesthetic Review: No Changes in Pt Med Stat, Meds/Allgs Chart Reviewed, Consent Obtained/Reviewed and Anes Risks/Benef Reviewed Patient Risk: Intermediate Procedure Risk: Low Assessment/Block/Sedation in SS: Assess/Block/Sedation-SS Anesthetic Plan Anesthetic Plan: GA Disposition: Standard PACU
[2024-04-17] VITALS (20 sets, daily range): BP systolic 143–188; BP diastolic 65–89; PULSE 81–109; RESP 14–20; TEMP 36.2–37.2; O2SAT 94–100; BMI 35.4
--- NOTE | ~2024-04-17 | FL_ITS ---
EXAMINATION: FL GUIDANCE ONLY HISTORY: C5 LAMINECTOMY COMPARISON: None available. TECHNIQUE: Fluoroscopy time: 8.7 seconds. Cumulative Dose: 1.1699 mGy. DAP: 0.3904 mGym2 Images: 3. FINDINGS: Images demonstrate an electrode at the C4-5 level. FL/FL guidance in OR IMPRESSION: Fluoroscopy during procedure. Please see procedure report for additional information. Electronically signed by: Anthony Moreland MD 04/17/2024 12:58 PM [facility]
--- NOTE | 2024-04-17 07:01 | P.HPSUR_ITS ---
Pre-Procedural Eval Section A - 24 Hr Update-Section A only Date of Service: 04/17/24 Section B - Complete if H&P > 30 days Chief Complaint: Complex regional pain syndrome I, unspecified Allergies: Allergies Allergy/AdvReac Type Severity Reaction Status Date / Time adhesive tape Allergy Intermediate Rash Verified 03/18/24 09:13 Latex, Natural Rubber Allergy Intermediate Rash Verified 03/18/24 09:13 nylon Allergy Mild Itching Verified 03/18/24 09:13 lactose Allergy Unknown Verified 04/05/24 11:39 nitrofurantoin Allergy Unknown Verified 04/05/24 11:37 [From Macrobid] sulfamethoxazole Allergy Unknown Verified 04/05/24 11:37 [From Bactrim] trimethoprim [From Bactrim] Allergy Unknown Verified 04/05/24 11:37 Review of Systems Sugical H&P ROS: Negative: Constitution, Cardiovascular, Respiratory, Neurological, Psychiatric, Hem-Onc, Allergic/Immunologic, Gastrointestinal, Genitourinary, Musculoskeletal, Integumentary, Endocrine and Eyes/Ears/Nose/T hroat Exam Surgical H&P Exam: Not Evaluated: HEENT, Not Evaluated: Heart, Not Evaluated: Lungs, Not Evaluated: Extremities, Not Evaluated: Abdomen, Not Evaluated: Skin and Not Evaluated: Neurological Exam Comment: THE PATIENT IS AWAKE, ALERT, NO ACUTE DISTRESS. PROPOSED SURGICAL INCISION SITE IS CLEAN, DRY, WITH NO SIGNS OF RECENT INJURY OR TRAUMA. Plan Diagnosis/Plan: Unchanged I have reviewed the history and physical and performed a pertinent physical examination on my patient. No changes have occurred unless specified. Plan remains the same, left C5 laminotomy with spinal cord stimualtor insertion. Time Spent With Patient Time: Total time managing care of this patient today _12___ minutes.
[2024-04-17] MEDS: Lactated Ringers 1,000 ML 100 ML IVCONT (09:37)
[2024-04-17] MEDS: Scopolamine 1.5 MG PATCH.TD.3 TRANSDERMA (09:40)
[2024-04-17] MEDS: methocarbamoL 750 MG TABLET PO (09:40)
[2024-04-17] MEDS: Acetaminophen 1,000 MG/100 ML PIGGYBACK 400 MG IV (10:47)
[2024-04-17] MEDS: ceFAZolin Sodium/Dextrose,Iso 2 GM/50 ML PIGGYBACK IV ×3 (10:58→21:15)
[2024-04-17] MEDS: fentaNYL citrate/PF 100 MCG/2 ML VIAL 25 MCG IVPUSH ×4 (13:35→14:15)
--- NOTE | 2024-04-17 13:41 | W.PM.OPN ---
Operative Note Operative Note Date of Service: 04/17/24 Narrative: Preop diagnosis: Chronic pain syndrome Postop diagnosis: Same Procedure: Cervical laminectomy and Implantation cervical epidural spinal cord stimulator ; subcutaneous placement generator Surgeon: Ahmet Hays MD Assist: Keven Pascal PA-C Description of procedure: This 64-year-old female had a trial cervical spinal cord stimulator placed. The pain management was unable to place a permanent stimulator and therefore I was asked if I could perform a cervical laminectomy and insert a cervical epidural spinal cord stimulator and subcutaneous battery for this patient. The procedure and complications were explained. The patient was consented. The patient was brought to the operating room and endotracheally intubated. The Mcclain was applied. The patient was turned prone on the gel rolls with the head fixated in the Mcclain clamp. We had to tape the arms and shoulders down to better visualize the cervical spine. Prepping and draping was done followed by time out. A midcervical incision was made followed by dissection in the midline to expose the spinous processes of C6 and C7. An intraoperative x-rays obtained to confirm the correct level. The lamina of C6 and C7 were exposed bilaterally. Extensive hemostasis was done. The interspinous ligament was resected and a partial C6 laminectomy was done. The flavum ligament was opened to expose the underlying dura. Then the epidural spinal cord stimulator from [employer] was advanced epidurally. X-rays in AP and lateral projection showed that it ended at C4 and was in the midline. Then we tunneled from cervical to the high lumbar region on the right side, were in the meantime the physician accounting manager assistant controller created a pocket for the generator. The leads were advanced through the tunneler and connected to the battery. The battery was placed subcutaneously. Testing of the battery showed 100% functioning of all the leads. Then a new set of x-rays obtained and it showed that the epidural lead slightly retrieved. The lead was advanced again to its original position and then secured to the fascia with nonabsorbable sutures. Hemostasis was done again. The cervical incision was closed with a 2-0 Vicryl for the fascia to 5. Good this and a 3-0 Vicryl subdermal layer and finally dru were used for final closure. At the end of the procedure the gel roll started to shift from under the patient on the right side which caused the Mcclain pin to cause an skin tear of approximately 3 cm. When the incision were covered with a tegaderm and opssite the patient was turned into the bed. The Mcclain was removed and the laceration closed with 3 dru by the physician accounting manager assistant controller. All sponge needle counts were correct. Patient was extubated and transported stable to recovery. Anesthesia: General Estimated blood loss: 100 mL Specimen: None Surgical time: 2 hours Deposition: Discharged home
[2024-04-17] MEDS: oxyCODONE HCl Immed Release 5 MG TABLET PO (14:27)
--- NOTE | 2024-04-17 15:40 | PC.NURSE ---
Primary RN notified to take pictures of tape broussard r/t allergies in Operating room when patient comes to the unit. Acknowledged.
[2024-04-17] MEDS: 0.9 % Sodium Chloride 1,000 ML 75 ML IVCONT (16:17)
--- NOTE | 2024-04-17 16:30 | HO.SKINPHOTO ---
Location:back of head Category: Stage: Length: Width: Depth: cm Location:left arm Category: Stage: Length: Width: Depth: cm Location:left shoulder Category: Stage: Length: Width: Depth: cm right shoulder Location: Category: Stage: Length: Width: Depth: cm Location: Category: Stage: Length: Width: Depth: cm Location: Category: Stage: Length: Width: Depth: cm
[2024-04-17] MEDS: Acetaminophen 325 MG TABLET 975 MG PO ×2 (16:45→21:15)
[2024-04-17] MEDS: ondansetron HCL 4 MG/2 ML VIAL IVPUSH (16:59)
--- NOTE | 2024-04-17 17:31 | PC.NURSE ---
pt arrived to unit , pictures taken of wounds , pt ambulated to bathroom with 1 assist.
--- NOTE | 2024-04-17 17:50 | PHA.MEDREC ---
Addendum entered by [facility] 04/17/24 18:19: med rec reviewed Original Note: Pharmacy Consult ? Medication Reconciliation Pharmacy has reviewed the medication reconciliation done by nursing. Spoke to patient to confirm med list. Patient was able to tell me what medications she takes. Patient states she is no longer taking Yuvafem 10 mcg (she stopped and may continue in the future), Tramadol 50 mg, and Voltaren Gel. Patient confirmed Estradiol patch patient changes every 4 days, last put a new patch on Monday04/15/24. Patient states she is switching her doses around. patient says she takes 1-3 tables at bedtime.
[2024-04-17] MEDS: Omeprazole 20 MG CAPSULE.DR PO (19:14)
[2024-04-17] MEDS: DULoxetine HCl 20 MG CAPSULE.DR 40 MG PO (19:14)
[2024-04-17] MEDS: Gabapentin 300 MG CAPSULE PO (19:14)
[2024-04-17] MEDS: oxyCODONE HCl Immed Release 5 MG TABLET 10 MG PO (19:14)
[2024-04-17] MEDS: rOPINIRole HCL 2 MG TABLET PO (19:14)
[2024-04-18 03:09] VITALS: BP 135/63; PULSE 83; RESP 16; TEMP 36.6; O2SAT 93
[2024-04-18] MEDS: oxyCODONE HCl Immed Release 5 MG TABLET 10 MG PO ×2 (03:23→10:26)
[2024-04-18] MEDS: Acetaminophen 325 MG TABLET 975 MG PO ×2 (03:24→10:26)
[2024-04-18] MEDS: 0.9 % Sodium Chloride 1,000 ML 75 ML IVCONT (03:25)
[2024-04-18] MEDS: ceFAZolin Sodium/Dextrose,Iso 2 GM/50 ML PIGGYBACK IV (03:25)
[2024-04-18] MEDS: Omeprazole 20 MG CAPSULE.DR PO (05:29)
[2024-04-18] MEDS: Levothyroxine Sodium 112 MCG, Levothyroxine Sodium 25 MCG 137 MCG PO (05:30)
[2024-04-18 07:36] VITALS: BP 136/66; PULSE 67; RESP 18; TEMP 36.3; O2SAT 95
[2024-04-18] MEDS: lisinopriL 20 MG TABLET PO (07:59)
[2024-04-18] MEDS: Gabapentin 300 MG CAPSULE PO (07:59)
[2024-04-18] MEDS: Loratadine 10 MG TABLET PO (07:59)
[2024-04-18 08:49] VITALS: BP 136/66; PULSE 67; O2SAT 95
--- NOTE | 2024-04-18 09:17 | MHC.CM.PN ---
Addendum entered by Carmela Myrick 04/18/24 12:57: [facility] was not able to accept the patient for home services. [facility] will provide Home services. Patient will arrange for her ride home. Original Note: S/P spinal surgery. She lives alone, and is independent at baseline. DME Rollator, Walker, Cane, WC shower bench. Apartment is ADA accessible. PT recommends Home services. Pts preference is [facility], referral sent. 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 DP Home with [facility]. Patient has arranged for transport home. Discharge is planned for today.
--- NOTE | 2024-04-18 09:52 | P.DS_ITS ---
DS: Providers Provider Date of Service: 04/18/24 Date of discharge: 04/18/24 Primary care physician: Xochilt Urrutia MD DS: Summary Time Attestation Discharge Coordination Time (in mins): 12 Quality: Safe Use of Opioids Does Pt have an Active Cancer Diagnosis on the Problem List?: No Quality: Stroke Does the patient have a stroke diagnosis?: No Physical Exam Vital Signs: Vital Signs: Last Vital Signs Temp 97.4 F 04/18/24 07:36 Pulse 67 04/18/24 08:49 Resp 18 04/18/24 07:36 BP 136/66 04/18/24 08:49 Pulse Ox 95 04/18/24 08:49 O2 Del Method Room Air 04/18/24 07:36 BMI result Body Mass Index 35.4 Discharge Plan Discharge Patient Disposition: Home Health Service Referrals: Xochilt Urrutia MD [Primary Care Provider] - 1 Week Discharge Medications: New oxycodone 5 mg tablet 5 mg PO Q8H PRN (Reason: pain) Qty: 21 0RF Rx Instructions: Partial Fill upon patient request. Continued cetirizine [Zyrtec] 10 mg Tablet 10 mg PO DAILY estradiol 0.0375 mg/24 hr patch semiweekly 1 patch topical Q96H acetaminophen 650 mg tablet extended release 1,300 mg PO Q12H albuterol sulfate 90 mcg/actuation HFA aerosol inhaler 2 puff inhalation Q6H PRN (Reason: Shortness Of Breath Or Wheezing) duloxetine 40 mg capsule,delayed release(DR/EC) 40 mg PO BEDTIME esomeprazole magnesium [Nexium] 20 mg capsule,delayed release(DR/EC) 20 mg PO QPM levothyroxine 137 mcg capsule 137 mcg PO DAILY@0600 lisinopril 20 mg tablet 20 mg PO DAILY ropinirole 2 mg tablet 1 - 3 mg PO BEDTIME Rx Instructions: administer 1-3 hours before bedtime Discharge Orders: Discharge Order (Routine); Ordered 04/18/24 Ordered By: Keven Pascal Diet: Advance to usual diet Activity on Discharge: As tolerated Activity Restrictions/Additional Instructions: After your spinal surgery we ask you to observe the following restrictions/guidelines: Activity: It is normal to feel some discomfort as you increase your activity, but that will improve with time. We ask you avoid heavy lifting or acitivities that cause pain. As a general rule, 8lbs is a safe limit for lifting right after surgery. Walk as much as you feel comfortable but not to exhaustion. You will feel extra tired the first few days after surgery. Stay well hydrated. It is OK to walk up and down stairs You may return to driving when you are off narcotics (such as vicodin, oxycodone, dilaudid, etc), and you are back to normal functional capacity. If you have any concerns please check with office before driving. Return to work is specific to each patient and each surgery, so please speak with your doctor/PA at first follow up. Please bring paperwork such as FMLA at that time if you need it filled out. Medications: We are sending in a short course of Doxycycline (an antibiotic). Please take the entire prescription as prescribed. We recommend you take 1,000mg Tylenol every 8 hours for the first few weeks after surgery, if you do not have any liver issues and can tolerate this medication. Do not exceed 4,000mg daily. We will give you a short supply of narcotics after surgery (usually one weeks worth). If you need more please call the office but do not use more than prescribed. You will need to give our office 48 hours notice if you need narcotics refilled and we do not fill narcotics on weekends or evenings. If you are on a narcotic, it is a good idea to take a stool softener such as colace or senna to avoid constipation If you take blood thinner such as aspirin, Plavix, Coumadin, Effient, Eliquis etc for conditions such as Afib, DVT, Pulmonary embolus, coronary disease, stents etc please speak with your surgeon about specific details as to when you can resume these medications. You can resume NSAIDs on post op day 1 (eg: Motrin, Naproxen, etc). Follow up: Please call the office, , after surgery to arrange a 3 week follow up for wound check. Wound Care: You may remove your dressing on the first day after surgery. ?You may ?leave open to air. Please do not remove the steri strips underneath. they will fall off on their own in one week. We will need to see you in clinic 10 days out from surgery for staple removal. IT IS NORMAL FOR THE WOUND TO OOZE OR BE BLOODY FOR A FEW DAYS AFTER SURGERY. ?IF THIS HAPPENS JUST PLACE NEW DRESSING OVER IT TO AVOID STAINING CLOTHES. You may shower on post op day # 1 We ask that you do not let the water soak the wound. If it does get wet, just towel dry lightly. Please do not scrub your incision or place any type of chemical/ointment on the wound. No tub baths, pools or jacuzzis for one month. If you have any leaking or redness from your wound, or fevers, please call the office. Print Language: Hungarian
--- NOTE | 2024-04-18 09:57 | HO.NEURO.PN ---
Neurosurgery Operative Note Date of Service: 04/18/24 Narrative: Jessica is a pleasant 64 year old female who underwent cervical laminotomy yesterday for insertion of spinal cord stimulator device. She was seen sitting upright in her bedside chair on today eating breakfast. She had an incidental, superficial 3cm laceration on the posterior aspect of her right parietal bone above the lamboid suture line. This was closed with 3 dru after her stevens was removed. She also had some superficial redness without edema and only minimal urticaria on her lateral forearms and shoulders from the tape used to secure the patient during the procedure. This is typically a day procedure, but for these reasons we kept her as an extended stay in the hospital <24 hrs. She overall has done very well since surgery and is progressing as expected. She has been up OOB to the bathroom and worked with PT today. She is voiding well and tolerating her current diet. The patient has some pain limited strength in her bilateral lower extremities, but is otherwise functioning very well. Her 3 back dressings (posterior cervical, mid thoracic, and lower right lumbar) are C/D/I with minimal staining. No swelling, erythema or edema around this area. Her scalp laceration is closed with 3 sutures and is clean and dry. Maricel may discharge home today. She was seen by VERONICA Rousseau, Dr. Hays, and this television writer today. I will send in a short course of oxycodone for her to [facility] pharmacy. She will need to follow up in clinic in 10 days for staple removal. I will complete a [id number] note for the patient so she may receive home PT and nursing services per physical therapy recommendations. Keven Hays MD,PhD [facility]
--- NOTE | 2024-04-18 10:05 | P.F2F_ITS ---
Service Date Service Date: 04/18/24 Encounter Date of encounter: 04/18/24 Reasons for Services Signs and symptoms assessed: s/p C6-7 laminotomy for spinal cord stimulator insertion Reason for assisted: wound care, postoperative assessment and/or care and medication management Reason for physical therapy: home safety and mobility, therapeutic exercises, gait/transfer training and ADL training Homebound: Leaving the home is medically contraindicated at this time without the asist of a device and/or another person due th the listed conditions above and below. Reason homebound: unsteady gait / fall risk, pain with ambulation, poor balance / fall risk and weakness related to hospital stay Certification: Based on the above findings, I certify that this patient is confined to the home and needs intermittent assisted care, physical therapy and/or speech therapy, or continues to need occupational therapy. The patient is under my care, and I have initiated the establishment of the plan of care. The patient will be followed by a physician who will periodically review the plan of care. Time Spent With Patient Time: Total time managing care of this patient today __20__ minutes.
== END 2024-04-18 14:25 | disposition home health service (06) ==
LOC: HO.SSS 13:45 → HO.S3 15:30
PROVIDERS: Anesthesiology; PCP Family Medicine; Visit Provider Neurological Surgery
PROC: (CPT 63655; principal; 2024-04-17 10:30)
DX: G89.4 Chronic pain syndrome (principal); M79.602 Pain in left arm; G90.50 Complex regional pain syndrome I, unspecified; M75.102 Unspecified rotator cuff tear or rupture of left shoulder, not specified as traumatic; M77.12 Lateral epicondylitis, left elbow; M85.80 Other specified disorders of bone density and structure, unspecified site; M19.90 Unspecified osteoarthritis, unspecified site; M79.7 Fibromyalgia; I10 Essential (primary) hypertension; G25.81 Restless legs syndrome; G47.00 Insomnia, unspecified; F43.10 Post-traumatic stress disorder, unspecified; I73.00 Raynaud's syndrome without gangrene; J45.909 Unspecified asthma, uncomplicated; Z79.899 Other long term (current) drug therapy; Z88.2 Allergy status to sulfonamides; L23.1 Allergic contact dermatitis due to adhesives; Z91.040 Latex allergy status; Z98.890 Other specified postprocedural states; Z87.891 Personal history of nicotine dependence
CPT/HCPCS: 63655; 63685; 36415; 80048; 97162; C1767; C1787; C1820; J0131; J0690; J1100; J1596; J2003; J2250; J2405; J2704; J3010

== ENCOUNTER → 2024-04-17 08:16 | Outpatient (BNV) | payer OTHER, SELFPAY | PROVIDERS: PCP Family Medicine; Visit Provider Neurological Surgery | DX: G89.4 Chronic pain syndrome (principal) | CPT/HCPCS: 63655; 63685 ==

== ENCOUNTER 2024-04-24 15:03 | Outpatient (AMB) | payer OTHER, SELFPAY ==
--- NOTE | 2024-04-24 14:51 | HO.SPINEOV ---
Intake Visit Reasons: incision check Intake Note: Ms. Yung is here today for an incision check. Allergies adhesive tape Allergy (Intermediate, Verified 03/18/24 09:13) Rash Latex, Natural Rubber Allergy (Intermediate, Verified 03/18/24 09:13) Rash nylon Allergy (Mild, Verified 03/18/24 09:13) Itching lactose Allergy (Verified 04/17/24 09:05) Diarrhea nitrofurantoin [From Macrobid] Allergy (Verified 04/17/24 09:06) Rash sulfamethoxazole [From Bactrim] Allergy (Verified 04/17/24 09:05) Vomiting trimethoprim [From Bactrim] Allergy (Verified 04/17/24 09:05) Vomiting Assessment & Plan Assessment & Plan (1) S/P insertion of spinal cord stimulator: Code(s): Z96.89 - Presence of other specified functional implants Category: Surgical Plan Jessica is a pleasant 64-year-old female who comes in today for an incision check after calling the office stating that she had some drainage from her posterior cervical incision site. To recap she had a cervical laminotomy performed by Dr. Hays on 03/29/24 for spinal cord stimulator placement. She states that after taking a shower today her incision site began leaking clear/bloody fluid. It has not stopped intermittently leaking this fluid. She reports some posterior neck pain but nothing out of the ordinary compared to the pain that she has had in the posterior neck since surgery. She did note some increased redness, however states that she tried putting Band-Aids over the incision earlier today and feels the adhesive likely cause the redness. She denies any at-home fever, shaking, chills. No new neurological deficits on examination today. The patient's posterior incision site is closed, well approximated, with no erythema, edema or notable fluctuance. There is no purulent drainage. There is some serosanguineous drainage but it is very minimal in his coming from the posterior aspect of the incision. Overall I think Jessica's incision is healing well, however she does have a significant history of infection per her report. She has essentially had infections after almost every procedure she has had. For these reasons I will put her on an additional 5 days of doxycycline and add Keflex so the patient has Gram-positive, some Gram-negative, and atypical bacterial coverage. At the conclusion of this visit the patient asked if I can remove the 3 dru overlying the small laceration she had on her scalp from the [place]. The incision appeared well approximated and well healing, so the dru were removed. This was done in a sterile fashion and was uncomplicated. I would like Jessica to still follow up routinely next week for removal of her posterior cervical incision site dru. Keven Hays MD,PhD [facility] [employer] Medications: Discontinued doxycycline hyclate Discontinued Reason: Doctor's Order 100 mg PO BID 5 days 10 caps 0RF surgical prophylaxis Coding Level of Care Code Global (93158) Diagnoses S/P insertion of spinal cord stimulator Z96.89
--- OUTSIDE RECORDS SUMMARY | 2024-04-24 17:55 | XMS_ITS | Encounter Summary ---
Author Organization [employer] Address [address] [place] [address] Care Team Providers Care Top Knitter Name Role Phone Burt Hines Unassigned Primary [...] on filedocumented in this encounter Care Teams Top Knitter Relationship Specialty Start Date End Date Burt Hines Unassigned PCP - General Family Medicine 06/20/22 documented as of this encounter
--- OUTSIDE RECORDS SUMMARY | 2024-04-24 17:55 | XMS_ITS | Encounter Summary ---
Author Organization [employer] Address [address] [facility] [address] [place] [address] Care Team Providers Care Chronic Manager Name Role Phone Burt Hines Unassigned Primary [...] on filedocumented in this encounter Care Teams Chronic Manager Relationship Specialty Start Date End Date Burt Hinesssamadeo PCP - General Family Medicine 06/20/22 documented as of this encounter
--- OUTSIDE RECORDS SUMMARY | 2024-04-24 17:55 | XMS_ITS | Encounter Summary ---
Author Organization [employer] [facility] Address [address] [facility] [facility] [address] [place] [address] Care Team Providers Care Livestock Farm Manager Name Role Phone Burt Hines Unassigned [...] on filedocumented in this encounter Care Teams Livestock Farm Manager Relationship Specialty Start Date End Date Burt Hines Unassigned PCP - General Family Medicine 06/20/22 documented as of this encounter
--- OUTSIDE RECORDS SUMMARY | 2024-04-24 17:55 | XMS_ITS | Clinical Summary ---
Author Organization [employer] Address [address] [facility] [address] [place] [address] Care Team Providers Care Hand Crown Pouncer Name Role Phone PcpBurt Unassigned Primary Care [...] RADIOGRAPHIC IMAGES Routine 12/04/2020 12:00 AM EDT INTRAORAL - COMPLETE SERIES OF RADIOGRAPHIC IMAGES Routine 03/23/2018 12:00 AM EST from Last 3 Months or Most Recently Relevant to Health Maintenance Insurance [facility] MEDICAID STAND ADULT Member Subscriber Plan / Payer (Ef fective 2022-Present) Name:Jessica Yung Relation to Subscriber:Self Name:Jessica Yung Payer ID:Not on file Group ID:Not on file Type:Not on file Address: [place] [id number] Care Teams Hand Crown Pouncer Relationship Specialty Start Date End Date Burt Hines Unassigned PCP - General Family Medicine 06/20/22
--- OUTSIDE RECORDS SUMMARY | 2024-04-24 18:16 | XMS_ITS | Encounter Summary ---
Author Organization [employer] Address [address] [facility] [address] [place] [address] Care Team Providers Care Home Office Claims Examiner Name Role Phone Burt Hines Unassigned Primary [...] on filedocumented in this encounter Care Teams Home Office Claims Examiner Relationship Specialty Start Date End Date Burt Hinesssamadeo PCP - General Family Medicine 06/20/22 documented as of this encounter
--- OUTSIDE RECORDS SUMMARY | 2024-04-24 18:16 | XMS_ITS | Encounter Summary ---
Author Organization [employer] Address [address] [facility] [address] [place] [address] Care Team Providers Care Knitting Supervisor Name Role Phone Burt Hines Unassigned Primary [...] on filedocumented in this encounter Care Teams Knitting Supervisor Relationship Specialty Start Date End Date Burt Hines Unassigned PCP - General Family Medicine 06/20/22 documented as of this encounter
--- OUTSIDE RECORDS SUMMARY | 2024-04-24 18:16 | XMS_ITS | Clinical Summary ---
Author Organization [employer] Address [address] [facility] [address] [place] [address] Care Team Providers Care Wire Brush Maker Name Role Phone PcpBurt Unassigned Primary Care [...] Most Recently Relevant to Health Maintenance Insurance [facility] MEDICAID STAND ADULT Member Subscriber Plan / Payer (Ef fective 2022-Present) Name:Jessica Yung Relation to Subscriber:Self Name:Jessica Yung Payer ID:Not on file Group ID:Not on file Type:Not on file Address: [place] [id number] Care Teams Wire Brush Maker Relationship Specialty Start Date End Date Burt Hines Unassigned PCP - General Family Medicine 06/20/22
--- OUTSIDE RECORDS SUMMARY | 2024-04-24 18:16 | XMS_ITS | Encounter Summary ---
Author Organization [employer] [facility] Address [address] [facility] [address] [place] [address] Care Team Providers Care Assistant Chief Engineer Name Role Phone Burt Hines Unassigned Primary [...] on filedocumented in this encounter Care Teams Assistant Chief Engineer Relationship Specialty Start Date End Date Burt Hines Unassigned PCP - General Family Medicine 06/20/22 documented as of this encounter
== END 2024-04-24 15:09 | disposition home or self-care (01) ==
PROVIDERS: PCP Family Medicine; Visit Provider Physician Assistant
DX: Z96.89 Presence of other specified functional implants (principal)
CPT/HCPCS: 99024

== ENCOUNTER 2024-04-29 09:16 | Outpatient (AMB) | payer OTHER, SELFPAY ==
--- NOTE | 2024-04-29 09:22 | HO.SPINEOV ---
Intake Visit Reasons: staple removal Intake Note: Ms. Yung is here today for staple removal. Manager Process Excellence Required: No Allergies adhesive tape Allergy (Intermediate, Verified 03/18/24 09:13) Rash Latex, Natural Rubber Allergy (Intermediate, Verified 03/18/24 09:13) Rash nylon Allergy (Mild, Verified 03/18/24 09:13) Itching lactose Allergy (Verified 04/17/24 09:05) Diarrhea nitrofurantoin [From Macrobid] Allergy (Verified 04/17/24 09:06) Rash sulfamethoxazole [From Bactrim] Allergy (Verified 04/17/24 09:05) Vomiting trimethoprim [From Bactrim] Allergy (Verified 04/17/24 09:05) Vomiting Assessment & Plan Assessment & Plan (1) S/P insertion of spinal cord stimulator: Code(s): Z96.89 - Presence of other specified functional implants Category: Surgical Plan Procedure: Cervical laminectomy and Implantation cervical epidural spinal cord stimulator Jessica is a pleasant 64 year old female who underwent cervical laminotomy for SCS placement on 04/17/24. She has overall done well. See my previous note for more specifics regarding her case. She comes in today for her 1st postoperative visit and to have her remaining dru removed. She reports that she has been doing overall well, and feels her arm pain has much improved. She does still have some right sided posterior neck pain which is very common from a posterior laminectomy as we go through the trapezius muscle for this approach. She states that she is otherwise doing well and reports no concerns or issues with her surgery. She inquired about starting PT as she states they can massage her shoulders and neck and help her learn new stretches. She understands that she should not be doing weight bearing exercise. She also requested an Rx for Diflucan to treat the candidiasis infection she has acquired likely secondary to antibiotics. 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 No new neurological deficits. The patients ambulates well and rises from a seated position without difficutly. Her posterior incision site is closed and well approximated / well healing. I removed the dru overlying the incision. There is some redness at the base of the incision but overall it looks good. There is no drainage present. Jessica would like to follow up with Dr. Hays for her 2nd postoperative visit, so I advised her to make an appointment with him on him way out today. Keven Hays MD,PhD [facility] Medications: New fluconazole (Diflucan) 200 mg PO DAILY 2 days 2 tabs 0RF candidiasis prophylaxis with antibiotics Coding Level of Care Code Global (88822) Diagnoses S/P insertion of spinal cord stimulator Z96.89
--- OUTSIDE RECORDS SUMMARY | 2024-04-29 09:53 | XMS_ITS | Encounter Summary ---
Author Organization [employer] Address [address] [facility] 7 [place] [address] Care Team Providers Care Cream Dumper Name Role Phone Burt Hines Unassigned Primary [...] on filedocumented in this encounter Care Teams Cream Dumper Relationship Specialty Start Date End Date Burt Hinesssamadeo PCP - General Family Medicine 06/20/22 documented as of this encounter
--- OUTSIDE RECORDS SUMMARY | 2024-04-29 09:53 | XMS_ITS | Encounter Summary ---
Author Organization [employer] Address [address] [facility] 7 [place] [address] Care Team Providers Care Fuse Maker Name Role Phone Burt Hines Unassigned Primary [...] on filedocumented in this encounter Care Teams Fuse Maker Relationship Specialty Start Date End Date Burt Hines Unassigned PCP - General Family Medicine 06/20/22 documented as of this encounter
--- OUTSIDE RECORDS SUMMARY | 2024-04-29 09:53 | XMS_ITS | Encounter Summary ---
Author Organization [employer] Address [address] [facility] 7 [place] [address] Care Team Providers Care Orientation And Mobility Instructor Name Role Phone Burt Hines Unassigned Primary [...] on filedocumented in this encounter Care Teams Orientation And Mobility Instructor Relationship Specialty Start Date End Date Burt Hines Unassigned PCP - General Family Medicine 06/20/22 documented as of this encounter
--- OUTSIDE RECORDS SUMMARY | 2024-04-29 09:53 | XMS_ITS | Clinical Summary ---
Author Organization [employer] Address [address] [facility] 7t [place] [address] Care Team Providers Care Automatic Drill Operator Name Role Phone PcpBurt Unassigned Primary Care [...] Tdap) 06/02/2025 06/03/2015, 06/02/2009 Mammogram 09/18/2025 09/19/2023, 08/22, 09/23/2020, Additional history exists Zoster Vaccines Completed 07/31/2021, 06/01/2017 HIB Vaccines [...] Most Recently Relevant to Health Maintenance Insurance [facility] MEDICAID STAND ADULT Care Teams Automatic Drill Operator Relationship Specialty Start Date End Date Burt Hines Unassigned PCP - General Family Medicine 06/20/22
== END 2024-04-29 10:20 | disposition home or self-care (01) ==
PROVIDERS: PCP Family Medicine; Visit Provider Physician Assistant
DX: Z96.89 Presence of other specified functional implants (principal)
CPT/HCPCS: 99024

== ENCOUNTER → 2024-04-29 09:16 | Outpatient (BNVA) | payer OTHER, SELFPAY | PROVIDERS: PCP Family Medicine; Visit Provider Physician Assistant ==

== ENCOUNTER 2024-06-12 12:59 | Outpatient (AMB) | payer OTHER, SELFPAY ==
--- NOTE | 2024-06-12 13:09 | HO.SPINEOV ---
Intake Visit Reasons: 2nd post op with Xrays Intake Note: Ms. Yung is here today for her 2nd post-op visit and X-rays. Mini Baccarat Dealer Required: No Allergies adhesive tape Allergy (Intermediate, Verified 03/18/24 09:13) Rash Latex, Natural Rubber Allergy (Intermediate, Verified 03/18/24 09:13) Rash nylon Allergy (Mild, Verified 03/18/24 09:13) Itching lactose Allergy (Verified 04/17/24 09:05) Diarrhea nitrofurantoin [From Macrobid] Allergy (Verified 04/17/24 09:06) Rash sulfamethoxazole [From Bactrim] Allergy (Verified 04/17/24 09:05) Vomiting trimethoprim [From Bactrim] Allergy (Verified 04/17/24 09:05) Vomiting Assessment & Plan Assessment & Plan (1) S/P insertion of spinal cord stimulator: Code(s): Z96.89 - Presence of other specified functional implants Category: Medical Plan Dear colleague, On three, two thousand twenty five I saw for 2nd postoperative visit Jessica Yung. She had an cervical spinal cord stimulator implanted for chronic pain syndrome. She states that I gave her life back as far as the symptoms. Her main complaint is pain at the battery site when she sits or lays in bed. On exam: The incision is healed. There is pain on palpation of the battery. I am optimistic that this pain will subside over time with the formation of more scarring tissue. If not then we may have to considered to reposition the generator in a different position for example in the flank to avoid pressure when she sits down. Today's x-rays show a stable position of the spinal cord stimulator. I would like to follow-up in 3 months. Ahmet Hays MD, PhD Spine Fellowship Trained Neurosurgeon Director, [facility] Orders: Orders XR cervical spine 2V Today Z96.89 - Presence of other specified functional implants Coding Level of Care Code Global (56597) Diagnoses S/P insertion of spinal cord stimulator Z96.89
--- OUTSIDE RECORDS SUMMARY | 2024-06-12 15:20 | XMS_ITS | Encounter Summary ---
Author Organization [employer] Address [address] [facility] 7 [place] [address] Care Team Providers Care Director Of Intelligence Name Role Phone Burt Hines Unassigned Primary [...] on filedocumented in this encounter Care Teams Director Of Intelligence Relationship Specialty Start Date End Date Burt Hinesssamadeo PCP - General Family Medicine 06/20/22 documented as of this encounter
--- OUTSIDE RECORDS SUMMARY | 2024-06-12 15:20 | XMS_ITS | Encounter Summary ---
Author Organization [employer] Address [address] [facility] 7 [place] [address] Care Team Providers Care Customer Support Executive Name Role Phone Burt Hines Unassigned Primary [...] on filedocumented in this encounter Care Teams Customer Support Executive Relationship Specialty Start Date End Date Burt Hines Unassigned PCP - General Family Medicine 06/20/22 documented as of this encounter
--- OUTSIDE RECORDS SUMMARY | 2024-06-12 15:20 | XMS_ITS | Encounter Summary ---
Author Organization [employer] Address [address] [facility] 7 [place] [address] Care Team Providers Care Puttier Name Role Phone Burt Hines Unassigned Primary [...] on filedocumented in this encounter Care Teams Puttier Relationship Specialty Start Date End Date Burt Hines Unassigned PCP - General Family Medicine 06/20/22 documented as of this encounter
--- OUTSIDE RECORDS SUMMARY | 2024-06-12 15:20 | XMS_ITS | Clinical Summary ---
Author Organization [employer] Address [address] [facility] 7t [place] [address] Care Team Providers Care Credit Risk Analyst Name Role Phone PcpBurt Unassigned Primary Care [...] Most Recently Relevant to Health Maintenance Insurance [facility] MEDICAID STAND ADULT Care Teams Credit Risk Analyst Relationship Specialty Start Date End Date Burt Hines Unassigned PCP - General Family Medicine 06/20/22
== END 2024-06-12 14:09 | disposition home or self-care (01) ==
LOC: HO.HNS 13:00
PROVIDERS: PCP Family Medicine; Visit Provider Neurological Surgery
DX: Z96.89 Presence of other specified functional implants (principal)
CPT/HCPCS: 99024

== ENCOUNTER 2024-06-12 12:59 | Outpatient (REF) | payer OTHER, SELFPAY ==
--- NOTE | ~2024-06-12 | XR_ITS ---
EXAMINATION: XR CERVICAL SPINE CLINICAL INFORMATION: Z96.89 - Presence of other specified functional implants COMPARISON: None available. TECHNIQUE: 2 views of the cervical spine were obtained. FINDINGS: Spinal stimulator device is present in the midline within the dorsal epidural space, leads spanning the mid aspect of C6 through the mid aspect of C4. There is mild reversal of the normal lordosis without subluxation. No significant scoliosis. Craniocervical junction and C1-2 articulation intact and aligned. No fracture, compression deformity, or suspicious bone lesion. Normal sagittal alignment without significant subluxation. Normal facet alignment with multilevel left greater than right hypertrophic degenerative facet changes. Moderate disc degeneration present C5-6 and C6-7. No prevertebral soft tissue abnormality. Lung apices clear. XR/XR cervical spine 2V IMPRESSION: 1. No acute bony abnormalities. Mild to moderate cervical spondylosis. 2. Spinal stimulator device leads present in the midline within the dorsal epidural space spanning the mid aspect of C6 through the mid aspect of C4. Electronically signed by: Erwin Horowitz MD 06/14/2024 09:58 AM EDT
== END 2024-06-12 13:00 | disposition home or self-care (01) ==
LOC: HO.HOSX 12:59
PROVIDERS: PCP Family Medicine; Visit Provider Neurological Surgery
DX: Z96.89 Presence of other specified functional implants (principal)
CPT/HCPCS: 72040

== ENCOUNTER → 2024-06-12 13:22 | Outpatient (BNV) | payer OTHER, SELFPAY | PROVIDERS: PCP Family Medicine; Visit Provider Radiology Diagnostic Radiology | DX: M47.812 Spondylosis without myelopathy or radiculopathy, cervical region (principal); Z96.82 Presence of neurostimulator | CPT/HCPCS: 72040 ==

== ENCOUNTER 2024-09-13 13:23 | Outpatient (AMB) | payer OTHER, SELFPAY ==
--- OUTSIDE RECORDS SUMMARY | 2024-09-13 13:26 | XMS_ITS | Encounter Summary ---
Author Organization [employer] [facility] Address [facility]ly [facility] [address] [place] [phone] Phone Care Team Providers Care Remote Sensing Surveyor Name Role Phone Xochilt Urrutia MD Primary Care Provider [phone] Encounter Details Date Type Department Care Team (Late st Contact Info) Description 07/18/2023 Procedure Pass [facility], [address] [address] Social History Tobacco Use Types Packs/Day Years Used Date Smoking Tobacco: Never Smokeless Tobacco: Never Alcohol Use Standard Drinks/Week Comments Not Currently 0 (1 standard drink = 0.6 oz pur e alcohol) rarely Education Answer Date Recorded Are you interested in more education? Not on hardeep e 06/16/2022 Are you concerned about learning? Not on file 06/16/2022 No 06/16/2022 No 06/16/2022 Digital Access Answer Date Recorded No 07/18/2022 No 07/18/2022 Reliable internet access at home? Not on file 07/18/2022 Device with a working camera? Not on file Intimate Partner Violence Answer Date R ecorded Are you denied basic needs s uch as food, clothing, or medical care? No 11/02/2022 In the past 12 months have y ou been in a relationship with a person who hurts, threatens, or tries to control you? No 11/02/2022 Are you denied basic needs s uch as food, clothing, or medical care? No 11/02/2022 In the past 12 months have y ou been in a relationship with a person who hurts, threatens, or tries to control you? No 11/02/2022 Comments No Sex and Gender Information Value Date Recorded Sex Assigned at Female 02/27/2017 9:38 AM EST Legal Sex Female 9:46 PM EDT Gender Identity Female 02/27/2017 9:38 AM EST Sexual Orientation Bisexual 11/10/2023 12 :29 PM EDT documented as of this encounter Plan of Treatment Upcoming Encounters Date Type Department Care Team (Late st Contact Info) Description 09/06/2024 Procedure Pass [address] [address] 04/28/2025 12:30 PM EDT Appointment [address] [address] Henry Sebastian MD [address] [place] [address], [facility] [address] [place] [address] [email or web address] documented as of this encounter Visit Diagnoses Not on filedocumented in this encounter Additional Health Concerns Assessment Noted Time PHQ-2 Depression Total Score: 0 11/04/19 18 5:10 PM EDT documented as of this encounter Care Teams Remote Sensing Surveyor Relationship Specialty Start Date End Date Xochilt Urrutia MD [address] [place] [address] [email or web address] PCP - General Family Medicine 09/09/20 documented as of this encounter Additional Source Comments The information contained in this document represents components of the legal health record. It is not the complete legal health record.[facility]
--- OUTSIDE RECORDS SUMMARY | 2024-09-13 13:26 | XMS_ITS | Encounter Summary ---
Author Organization [employer] [facility] Address [address] [facility] 7t [place] [address] Care Team Providers Care Assembler For Puller Over Machine Name Role Phone Burt Hines Unassamadeo Primary Care Provider U navailable Encounter Details [...] on filedocumented in this encounter Care Teams Assembler For Puller Over Machine Relationship Specialty Start Date End Date Burt Hinesssamadeo PCP - General Family Medicine 06/20/22 documented as of this encounter
--- NOTE | 2024-09-13 13:28 | HO.SPINEOV ---
Intake Visit Reasons: 3 month follow up Intake Note: Ms. Yung is here today for a 3 month F/u. Wire Products Inspector Required: No Allergies adhesive tape Allergy (Intermediate, Verified 09/13/24 13:28) Rash Latex, Natural Rubber Allergy (Intermediate, Verified 09/13/24 13:28) Rash nylon Allergy (Mild, Verified 09/13/24 13:28) Itching lactose Allergy (Verified 09/13/24 13:28) Diarrhea nitrofurantoin (From Macrobid) Allergy (Verified 09/13/24 13:28) Rash sulfamethoxazole (From Bactrim) Allergy (Verified 09/13/24 13:28) Vomiting trimethoprim (From Bactrim) Allergy (Verified 09/13/24 13:28) Vomiting Assessment & Plan Assessment & Plan (1) S/P insertion of spinal cord stimulator: Code(s): Z96.89 - Presence of other specified functional implants Category: Surgical Plan: Dear colleague, On 09/13/2024 I saw for final postoperative visit Jessica Yung. She had a cervical spinal cord stimulator implanted for severe left arm pain. The symptoms are still mostly suppressed but she has breakthrough pains now and then in his currently working with the representative phlebotomy services of the company to find settings to improve it. She did recently have a fall and therefore we made some x-rays today to confirm that this stimulator is in the same place as it was left during surgery. I discharged her from further follow-up and she will see me as needed. Thank you for allowing me take care of your patient. Ahmet Hays MD, PhD Spine Fellowship Trained Neurosurgeon Director, [facility] Orders: Orders XR lumbar spine 2-3V Today Z96.89 - Presence of other specified functional implants XR thoracic spine 2V Today Z96.89 - Presence of other specified functional implants Coding Level of Care Code Global (53794) Diagnoses S/P insertion of spinal cord stimulator Z96.89
== END 2024-09-13 14:43 | disposition home or self-care (01) ==
LOC: HO.HNS 13:24
PROVIDERS: PCP Family Medicine; Visit Provider Neurological Surgery
DX: Z96.89 Presence of other specified functional implants (principal)
CPT/HCPCS: 99212

== ENCOUNTER 2024-09-13 13:23 | Outpatient (REF) | payer OTHER, SELFPAY ==
--- NOTE | ~2024-09-13 | XR_ITS ---
EXAMINATION: XR LUMBOSACRAL SPINE CLINICAL INFORMATION: Z96.89 - Presence of other specified functional implants COMPARISON: None available. TECHNIQUE: AP and lateral views. FINDINGS: Metallic reservoir of the neurostimulator device overlaps the medial right iliac bone upper right sacroiliac joint and the are not fully included in the exam. Multilevel endplate sclerosis and marginal osteophyte formation pronounced at L5-S1. No acute fracture or listhesis. No lytic or blastic lesions. Vascular clips right upper quadrant abdomen. XR/XR lumbar spine 2-3V IMPRESSION: Neurostimulator spinal canal device overlapping the medial right iliac bone/sacroiliac joint no fully included in the exam. Electronically signed by: Gino Islas MD 09/13/2024 03:01 PM EDT
--- NOTE | ~2024-09-13 | XR_ITS ---
EXAMINATION: XR THORACIC SPINE CLINICAL INFORMATION: Z96.89 - Presence of other specified functional implants COMPARISON: Correlated to cervical spine x-ray dated June 12, 2024. TECHNIQUE: AP lateral and swimmer's projection. FINDINGS: Multilevel marginal osteophyte formation and endplate sclerosis decreased intervertebral disc height throughout the axial skeleton. Spinal canal neurostimulator electrodes entering at C6-7 level and deep and at C4 level. XR/XR thoracic spine 3V IMPRESSION: Multilevel spondylosis. The electrode leads from the neurostimulator ends at C4 level Electronically signed by: Gino Islas MD 09/13/2024 02:59 PM EDT
== END 2024-09-13 13:24 | disposition home or self-care (01) ==
LOC: HO.HOSX 13:23
PROVIDERS: PCP Family Medicine; Visit Provider Neurological Surgery
DX: Z96.89 Presence of other specified functional implants (principal)
CPT/HCPCS: 72072; 72100

== ENCOUNTER → 2024-09-13 13:56 | Outpatient (BNV) | payer OTHER, SELFPAY | PROVIDERS: PCP Family Medicine; Visit Provider Radiology Diagnostic Radiology | DX: M47.817 Spondylosis without myelopathy or radiculopathy, lumbosacral region (principal); M47.12 Other spondylosis with myelopathy, cervical region | CPT/HCPCS: 72072; 72100 ==